=== PATIENT | male | born 1955 | race Caucasian/White ===

== ENCOUNTER 2021-10-05 10:35 | Emergency (ER) | payer OTHER ==
--- NOTE | 2021-10-05 13:53 | RAD REPORT ---
EXAM DESCRIPTION: RAD - Foot Right 3 View - 10/05/2021 1:39 pm CLINICAL HISTORY: PAINfollowing trauma COMPARISON: No comparisonsNone. FINDINGS: No fracture, dislocation or periosteal reaction. No acute bone or joint finding seen. Karen ent has a moderately large plantar spur. No air or foreign body in the soft tissues. IMPRESSION: Negative right foot examination for acute finding. Repeat imaging in 7 days could be performed if the patient has continued symptoms concerning for occu lt fracture.
--- NOTE | 2021-10-05 14:08 | ER ---
Nurse's Notes [facility] Name: Samuel Toney Age: 66 yrs Sex: Male : 1955 Arrival Date: 10/05/2021 Time: 10:38 Bed Treatment Private MD: Leanna Holcomb F Diagnosis: Pain in right foot Presentation: 10/05 10:52 Chief complaint: Patient states: "i was getting water out of the ditch and slipped and ab2 stepped wrong with my right ankle." Pt c/o right foot and ankle pain. Swelling and redness noted. Pt states this happened approx one week ago. Coronavirus screen: Vaccine status: Patient reports receiving the 2nd dose of the covid vaccine. Client denies travel out of the [place] in the last 14 days. At this time, the client does not indicate any symptoms associated with coronavirus-19. Ebola Screen: Patient negative for fever greater than or equal to 101.5 degrees Fahrenheit, and additional compatible Ebola Virus Disease symptoms Patient denies exposure to infectious person. Patient denies travel to an Ebola-affected area in the 21 days before illness onset. No symptoms or risks identified at this time. Initial Sepsis Screen: Does the patient meet any 2 criteria? No. Patient's initial sepsis screen is negative. Does the patient have a suspected source of infection? No. Patient's initial sepsis screen is negative. Risk Assessment: Do you want to hurt yourself or someone else? Patient reports no desire to harm self or others. Onset of symptoms is unknown. 10:52 Method Of Arrival: Ambulatory ab2 10:52 Acuity: ALTAF 4 ab2 Triage Assessment: 10:55 General: Appears in no apparent distress. uncomfortable, Behavior is calm, cooperative, ab2 appropriate for age. Pain: Complains of pain in right foot Pain currently is 10 out of 10 on a pain scale. Musculoskeletal: Reports pain in right foot. Injury Description:. Historical: - Allergies: 10:55 No Known Allergies; ab2 - PMHx: 10:55 None; ab2 - PSHx: 10:55 None; ab2 - Immunization history:: Adult Immunizations up to date. - Social history:: Smoking status: Patient denies any tobacco usage or history of. Vital Signs: 10:52 BP 129 / 86; Pulse 74; Resp 17; Temp 98.1(TE); Pulse Ox 98% on R/A; Weight 90.72 kg; ab2 Height 5 ft. 11 in. (180.34 cm); Pain 10/10; 10:52 Body Mass Index 27.89 (90.72 kg, 180.34 cm) ab2 ED Course: 10:38 Patient arrived in ED. as 10:39 Leanna Holcomb MD is Private Physician. as 10:55 [facility]C [facility] kb 10:55 Ab Zarate MD is Attending Physician. kb 10:55 Triage completed. ab2 10:56 Arm band placed on left wrist. ab2 12:52 Camila Youssef, RN is Primary Nurse. iw 13:41 Foot Right 3 View XRAY In Process Unspecified. EDMS Administered Medications: No medications were administered Outcome: 14:07 Discharge ordered by . kb 14:16 Patient left the ED. iw Signatures: Dispatcher [employer] EDMS Perla Soni FNP-C FNP-Maria Ines Pittman as Camila Youssef, RN RN iw Bud Woodard ab2
--- NOTE | 2021-10-05 14:08 | EDPHYS ---
Physician Documentation [facility] Name: Samuel Toney Age: 66 yrs Sex: Male : 1955 Arrival Date: 10/05/2021 Time: 10:38 Bed Treatment Private MD: Leanna Holcomb F ED Physician Ab Zarate HPI: 10/05 11:23 This 66 yrs old Male presents to ER via Ambulatory with complaints of Foot Pain. kb 11:23 The patient presents with pain, swelling, tenderness. The complaints affect the dorsum kb of right foot. Context: resulted from slipped, the patient can fully bear weight, the patient is able to ambulate. Onset: The symptoms/episode began/occurred 1 week(s) ago. Modifying factors: The symptoms are alleviated by nothing. the symptoms are aggravated by nothing. Associated signs and symptoms: Pertinent positives: swelling, redness. Treatment prior to arrival includes: no previous treatment. Severity of symptoms: At their worst the symptoms were moderate, in the emergency department the symptoms are unchanged. The patient has not experienced similar symptoms in the past. The patient has not recently seen a physician. 11:25 Pt states he was getting some water out of a [place]re[place]ski and slipped. States he didn't think kb he injured himself, but woke up with pain to right foot the next morning. States it has been getting better over the last 2 days, but wanted to get an x-ray to make sure it wasn't broken. Historical: - Allergies: 10:55 No Known Allergies; ab2 - PMHx: 10:55 None; ab2 - PSHx: 10:55 None; ab2 - Immunization history:: Adult Immunizations up to date. - Social history:: Smoking status: Patient denies any tobacco usage or history of. ROS: 11:22 Constitutional: Negative for fever, chills, and weight loss. kb 11:22 MS/extremity: Positive for erythema, pain, of the dorsum of right foot. 11:22 All other systems are negative. Exam: 11:23 Constitutional: This is a well developed, well nourished patient who is awake, alert, kb and in no acute distress. Head/Face: Normocephalic, atraumatic. ENT: Moist Mucous membranes Respiratory: Respirations even and unlabored. No increased work of breathing. Talking in full sentences Skin: Warm, dry with normal turgor. Normal color. Neuro: Awake and alert, GCS 15, oriented to person, place, time, and situation. Moves all extremities. Normal gait. Psych: Awake, alert, with orientation to person, place and time. Behavior, mood, and affect are within normal limits. 11:23 Musculoskeletal/extremity: Extremities: grossly normal except: noted in the dorsum of right foot: erythema, pain, swelling, tenderness, ROM: intact in all extremities, Circulation is intact in all extremities. Sensation intact. Weight bearing: able to fully bear weight. Vital Signs: 10:52 BP 129 / 86; Pulse 74; Resp 17; Temp 98.1(TE); Pulse Ox 98% on R/A; Weight 90.72 kg; ab2 Height 5 ft. 11 in. (180.34 cm); Pain 10/10; 10:52 Body Mass Index 27.89 (90.72 kg, 180.34 cm) ab2 MDM: 10:56 Patient medically screened. kb 11:23 Data reviewed: vital signs, nurses notes. Data interpreted: Pulse oximetry: on room air kb is 98 %. Interpretation: normal. 13:48 ED course: Due to system update images were not able to be seen by myself or the radiologist. Pt informed of reason for prolonged wait time. 14:00 Counseling: I had a detailed discussion with the patient and/or guardian regarding: the historical points, exam findings, and any diagnostic results supporting the discharge/admit diagnosis, radiology results, the need for outpatient follow up, a orthopedic surgeon, to return to the emergency department if symptoms worsen or persist or if there are any questions or concerns that arise at home. 10/05 10:56 Order name: Foot Right 3 View XRAY; Complete Time: 13:59 kb Administered Medications: No medications were administered Disposition: 10/06 08:57 Co-signature as Attending Physician, Ab Zarate MD. rn Disposition Summary: 10/05/21 14:07 Discharge Ordered Location: Home Condition: Stable kb Diagnosis - Pain in right foot kb Followup: kb - With: Emergency Department - When: As needed - Reason: Worsening of condition Followup: kb - With: Private Physician - When: 2 - 3 days - Reason: Recheck today's complaints, Continuance of care, Re-evaluation by your physician Discharge Instructions: - Discharge Summary Sheet kb - Foot Sprain kb Forms: - Medication Reconciliation Form kb - Thank You Letter kb - Antibiotic Education kb - Prescription Opioid Use kb Prescriptions: - Diclofenac Sodium 75 mg Oral tablet,delayed release (DR/EC) - take 1 tablet by ORAL route 2 times per day As needed; 30 tablet; Refills: 0, kb Product Selection Permitted Signatures: Dispatcher [employer] EDPerla Ward, COLLECTION SUPPORT SPECIALIST-C COLLECTION SUPPORT SPECIALIST-Ab De Luna MD MD rn Bleininger, Alexis ab2 Corrections: (The following items were deleted from the chart) 10/05 11:23 11:23 Musculoskeletal/extremity: Extremities: grossly normal except: noted in the kb dorsum of right foot: erythema, pain, swelling, tenderness, ROM: intact in all extremities, Circulation is intact in all extremities. Sensation intact. kb
[2021-10-05 14:52] VITALS: BP 129/86; TEMP 98.1; O2SAT 98
== END 2021-10-05 14:16 | disposition home or self-care (01) ==
LOC: ER 10:35
DX: M79.671 Pain in right foot (principal); W01.0XXA Fall on same level from slipping, tripping and stumbling without subsequent striking against object, initial encounter
CPT/HCPCS: 99282